=== PATIENT | female | born 1950 | race Caucasian/White ===

== ENCOUNTER → 2022-11-20 | Outpatient (CLI) | payer MEDICARE ==
--- NOTE | 2022-11-20 16:09 | MR ---
EXAMINATION TYPE: MR lumbar spine wo con DATE OF EXAM: 11/20/2022 COMPARISON: NONE HISTORY: Low back pain, Sciatica TECHNIQUE: Multiplanar, multisequence imaging of the lumbar spine is performed without IV contrast. FINDINGS: Sagittal images of the lumbar spine show vertebral body heights and alignment to appear sat isfactory. There is multilevel disc desiccation. There is mild to moderate disc space narrowing at L5 -S1 level. The conus medullaris is normal in position and signal ending inferior L1 level. There are 4 small Tarlov cyst posterior to S2 level sagittal images 7 through 12. The bone marrow signal inten sity is within normal limits. Mild to moderate multilevel anterior spurring is present. Axial images at T12-L1 level show focal central disc extrusion extending inferiorly correlating with sagittal image 9 mildly effaces the anterior thecal sac. Patent bilateral neural foramina. Axial images at L1-L2 level shows subtle spondylolisthesis with large right paracentral disc extrusio n extending inferiorly almost to inferior L2 level sagittal image 9. There is significant effacement of the anterolateral thecal sac and lateral recess along with central right L2 nerve. Bilateral neura l foramina are patent. Mild facet arthropathy bilaterally. Axial images at L2-L3 level mild broad disc bulge along with mild/moderate facet arthropathy and liga mentum flavum hypertrophy effacing the posterolateral thecal sac and axial image 23. Bilateral neural foramina are patent. Axial images at L3-L4 levels show mild to moderate broad disc bulge minimally effacing anterior theca l sac along with mild/moderate facet arthropathy and ligamentum flavum hypertrophy effacing the right greater than left posterior lateral thecal sac. Bilateral neural foramina remain patent. Axial images at L4-L5 level show moderate facet arthropathy and ligamentum flavum hypertrophy effacin g posterior lateral thecal sac. There is mild broad-based posterior disc protrusion. There is mild to moderate bilateral neural foraminal narrowing left greater than right noted. Axial images at L5-S1 level shows moderate facet arthropathy bilaterally. There is focal central disc protrusion and annular tear. Spinal canal is preserved. There is moderate left-sided inferior neural foraminal narrowing. Right-sided neural foramen is patent. Paraspinal muscle bulk is preserved. There is AAA measuring 4.7 x 4.4 cm transversely axial image 21 noted. IMPRESSION: Multilevel degenerative changes in the lumbar spine with largest disc herniation noted at L1-L2 level. There is 4.7 cm AAA noted.
== END | disposition home or self-care (01) ==
LOC: RADMRIMAIN 15:18
PROVIDERS: ATTEND Family Medicine
DX: M51.16 Intervertebral disc disorders with radiculopathy, lumbar region (principal); I79.1 Aortitis in diseases classified elsewhere; M47.26 Other spondylosis with radiculopathy, lumbar region; I71.40 Abdominal aortic aneurysm, without rupture, unspecified
CPT/HCPCS: 72148

== ENCOUNTER → 2024-01-08 | Outpatient (CLI) | payer MEDICARE ==
--- NOTE | 2024-01-08 13:02 | CTL ---
EXAMINATION TYPE: CT Low Dose Lung DATE OF EXAM ORDERED: 01/08/2024 HISTORY: Nicotine dependence. 40 pack-year history, quit smoking 5 years ago. Lung cancer screening CT DLP: 129.[address] CTDI: 3.60 mGy Automated exposure control for dose reduction was used. SCREENING VISIT: First screening visit COMPARISON: None TECHNIQUE: Low dose computed tomography scan was performed through the chest at 1 mm thick sections a nd reconstructed images in multiple planes at 1 mm and [address] DIAGNOSTIC QUALITY: Satisfactory FINDINGS: Nodules: Lingular 4.5 mm pulmonary nodule (series 4, image 168). There are 2 adjacent calcified granulomas within the left midlung largest measuring up to 2.3 mm (ser ies 4, image 124). Anterior right upper lobe pleural-based 2.8 mm pulmonary nodule (series 4, image 115). LUNGS: COPD: Severity: Mild centrilobular emphysematous changes. Fibrosis: Severity: None Lymph nodes: Calcified mediastinal and right hilar lymph nodes. No lymphadenopathy. Other findings: None RIGHT PLEURAL SPACE: Effusion: None Calcification: None Thickening: None Pneumothorax: None LEFT PLEURAL SPACE: Effusion: None Calcification: None Thickening: None Pneumothorax: None HEART: Heart Size: Normal Coronary Calcification: None Pericardial Effusion: None OTHER FINDINGS: Upper abdomen: Liver is diffusely hypoattenuating. Bony thorax: No acute process. Remote left-sided healed rib fractures. Supraclavicular region: None Other: None IMPRESSION: 1. A few scattered pulmonary nodules with largest measuring up to 4.5 mm. 2. Mild COPD changes. 3. Sequelae of prior granulomatous disease. 4. Hepatic steatosis. CT LUNG RAD AND CT CHEST RECOMMENDATION: Lung-Rad 2 Benign Appearance or Behavior: Continue annual sc reening with LDCT in 12 months. S Modifier (other clinically significant findings): None
== END | disposition home or self-care (01) ==
LOC: RADCTMAIN 10:45
PROVIDERS: ATTEND Family Medicine
DX: Z12.2 Encounter for screening for malignant neoplasm of respiratory organs (principal); J44.9 Chronic obstructive pulmonary disease, unspecified; R91.8 Other nonspecific abnormal finding of lung field; K76.0 Fatty (change of) liver, not elsewhere classified; Z87.891 Personal history of nicotine dependence
CPT/HCPCS: 71271

== ENCOUNTER → 2024-01-08 | Outpatient (CLI) | payer MEDICARE ==
--- NOTE | 2024-01-08 11:35 | BD ---
EXAMINATION TYPE: Axial Bone Density DATE OF EXAM: 01/08/2024 CLINICAL HISTORY: 73 years old Female. ICD-10 CODE: Z78.0 ASYMPTOMATIC MENOPAUSAL STA Height: 62.5 Weight: 182 FRAX RISK QUESTIONS: Family History (Parent hip fracture): no but hip replaced from wear Secondary Osteoporosis: yes 3. Menopause before 45: yes, 45, partial hyst at 24 Current Tobacco Use: yes RISK FACTORS HISTORY OF: MEDICATIONS: vit d, nsaid EXAM MEASUREMENTS: Bone mineral densitometry was performed using the [employer] System. Bone mineral density as measured about the Lumbar spine is: ----- L1-L4(G/cm2): 1.216 T Score Values are as follows: ----- L1: -1.1 ----- L2: 0.3 ----- L3: 0.6 ----- L4: 0.9 ----- L1-L4: 0.3 Z Score Values are as follows: ----- L1: 0.1 ----- L2: 1.4 ----- L3: 1.7 ----- L4: 2.0 ----- L1-L4: 1.4 Bone mineral density is a baseline study for her today. Bone mineral density about the R hip (g/cm2): 0.856 Bone mineral density about the L hip (g/cm2): 0.853 T Score values are as follows: -----R Neck: -2.2 -----L Neck: -1.9 -----R Total: -1.2 -----L Total: -1.2 Z Score values are as follows: -----R Neck: -0.7 -----L Neck: -0.4 -----R Total: 0.0 -----L Total: 0.0 Bone mineral density is the first dexa study for her. FRAX%s: The graph provided illustrates a 13.9% chance for a major osteoporotic fx and a 5.0% chance f or the hips probability for fx in 10 years time. IMPRESSION: Osteopenia (T Score between -2.5 and -1). There is slightly increased risk of fracture and the patient may be considered for treatment. Re-Screen 2-5 years. NOTE: T-SCORE=SD OF THE YOUNG ADULT MEAN.
--- NOTE | 2024-02-11 12:10 | MM ---
Reason for Exam: Screening (asymptomatic). Patient History: Menarche at age 15. First Full-Term at age 19. Hysterectomy at age 27. Postmenopausal. Risk Values: Jeanie 5 year model risk: 1.2%. NCI Lifetime model risk: 3.0%. Tissue Density: The breasts are almost entirely fatty. Findings: Right breast: There is no suspicious group of microcalcifications or new suspicious mass. Left breast: There is no suspicious group of microcalcifications or new suspicious mass. Overall Assessment: Negative, BI-RAD 1 Management: Screening Mammogram of both breasts in [address] [facility] will attempt to contact patient to return for supplemental views and ultrasound if indicated. Patient should continue monthly self-breast exams. A clinical breast exam by your physician is recommended on an annual basis. This exam should not preclude additional follow-up of suspicious palpable abnormalities. Note on Jeanie scores and lifetime risk: 1. A Jeanie score greater than 3% is considered moderate risk. If this is the case, consider specialist referral to assess eligibility for a risk reducing agent. 2. If overall lifetime risk for the development of breast cancer is 20% or higher, the patient may qualify for future screening with alternating mammogram and breast MRI. Electronically signed and approved by: Jamaal Olvera DO
== END | disposition home or self-care (01) ==
LOC: RADMAMWWP 09:53
PROVIDERS: ATTEND Family Medicine
DX: Z12.31 Encounter for screening mammogram for malignant neoplasm of breast (principal); M85.89 Other specified disorders of bone density and structure, multiple sites; Z78.0 Asymptomatic menopausal state
CPT/HCPCS: 77067; 77080